=== PATIENT | female | born 1945 | race Caucasian/White ===

== ENCOUNTER 2021-05-24 07:31 | Emergency (ER) | payer BC, MEDICARE ==
[~2021-05-24] VITALS: Ht 162.6 cm; Wt 75.0 kg
[2021-05-24 08:18] LABS: BASO # 0.1 10^3/uL (0.0-0.2); BASO % 0.6 % (0.0-1.0); EOS # 0.1 10^3/uL (0.0-0.5); HEMATOCRIT 41.1 % (36.0-47.0); HEMOGLOBIN 13.2 g/dl (12.0-15.5); LYMPH # 1.4 10^3/uL (1.5-5.0); LYMPH % 17.9 % (24.0-44.0); MEAN CORPUSCULAR HEMOGLOBIN 28.6 pg (27.0-33.0); MEAN CORPUSCULAR HGB CONC 32.1 g/dl (32.0-36.5); MEAN CORPUSCULAR VOLUME 89.2 fl (80.0-96.0); MONO # 0.5 10^3/uL (0.0-0.8); MONO % 5.8 % (2.0-8.0); NEUTROPHILS # 5.6 10^3/uL (1.5-8.5); PLATELET COUNT, AUTOMATED 223 10^3/uL (150-450); RED BLOOD COUNT 4.61 10^6/uL (4.00-5.40); WHITE BLOOD COUNT 7.7 10^3/uL (4.0-10.0)
[2021-05-24 08:42] LABS: ALBUMIN 3.5 GM/DL (3.2-5.2); ALT/SGPT 28 U/L (12-78); BILIRUBIN,DIRECT < 0.1 MG/DL (0.0-0.2); BILIRUBIN,TOTAL 0.3 MG/DL (0.2-1.0); LIPASE 87 U/L (73-393); TOTAL PROTEIN 7.2 GM/DL (6.4-8.2)
[2021-05-24] MEDS ORDERED: ONDANSETRON 4MG/2ML VIAL IV ONE (08:45)
[2021-05-24] MEDS ORDERED: ISOVUE-370 76% 100ML VIAL As Ordered ONE (09:09)
[2021-05-24 09:25] LABS: CK-MB VALUE MASS 2.1 NG/ML (<3.6); CPK CREATINE PHOSPHOKINASE 132 U/L (26-192); MB/CK RELATIVE INDEX 1.59 (< OR =4); TROPONIN I < 0.02 NG/ML (< 0.10)
--- NOTE | 2021-05-24 10:01 | REP ---
INDICATION: vertigo vs CVA. COMPARISON: NONCONTRAST CT BRAIN TODAY TECHNIQUE: BOLUS 100 ML ISOVUE 370 SCANNING THROUGH THE BRAIN WITH CORONAL AND SAGITTAL STANDARD AND MIP RECONSTRUCTIONS WELL 3D MIP RECONSTRUCTION ROTATED ABOUT THE LONG AXIS OF THE HEAD. FINDINGS: Contrast images show no abnormal or enhancing masses in the brain ventricular system and basal cisterns were intact. There is no midline shift. Right and left vertebral arteries show generally symmetric contribution to the basilar artery formation. There is no basilar stenosis or basilar tip aneurysm. The right posterior cerebral artery shows no significant stenosis or aneurysm. There is stenosis of the proximal course of the left posterior cerebral artery with most of the distal course of the posterior cerebral artery supplied by persistent circulation arising from the left internal carotid, an anatomic variation. No vessel cut off in the posterior fossa. Atherosclerotic calcifications along the course of the right internal carotid from the skull base and particularly in the carotid siphon without significant stenosis the supraclinoid carotid A1 and M1 segments were intact. Middle cerebral artery M2 and M3 segments and the anterior cerebral artery A2 segment unremarkable. No aneurysm or stenosis in the right internal carotid distribution. Atherosclerotic calcifications along the course of the internal carotid from the skull base to the carotid siphon where they are heaviest but without stenosis or aneurysm. Supraclinoid carotid A1 and M1 segments are intact. The M2 and M3 segments and the AP 2 segment on the left side were all intact anterior communicating artery intact. No stenosis or aneurysm on the left side. IMPRESSION: 1. Atherosclerotic calcification in bilateral internal carotids from the skull base through the carotid siphons without stenosis or aneurysm. Anterior and middle cerebral artery circulation bilaterally is symmetric and without any significant stenosis or aneurysm. 2. Basilar artery without stenosis or aneurysm. A left-sided persistent circulation supplying most of the flow of the left posterior cerebral artery which is an anatomic variation. No posterior fossa aneurysm or stenosis. <Electronically signed by Elliot Rice > 05/24/21 [id number]
--- NOTE | 2021-05-24 10:01 | REP ---
INDICATION: dizziness. COMPARISON: None. TECHNIQUE: CT BRAIN PERFORMED IN THE AXIAL PLANE. CORONAL RECONSTRUCTION IMAGES ARE PERFORMED. FINDINGS: THE VENTRICLES ARE NORMAL IN SIZE AND POSITION FOR THE STATED AGE.. THERE IS NO MIDLINE SHIFT OR MASS EFFECT. ABDUL-WHITE DIFFERENTIATION IS WELL MAINTAINED. SOME MILD CHRONIC PERIVENTRICULAR LOW-DENSITY WHITE MATTER CHANGES SUGGESTING CHRONIC SMALL VESSEL ISCHEMIC DISEASE. THERE IS NO ACUTE INTRACRANIAL HEMORRHAGE OR EXTRA-AXIAL FLUID COLLECTION. SOME CALCIFICATION OF THE CAROTID SIPHONS NOTED BILATERALLY. BONE WINDOW EXAMINATION IS OTHERWISE UNREMARKABLE. VISUALIZED MASTOID AIR CELLS AND PARANASAL SINUSES ARE CLEAR. IMPRESSION: THERE IS SOME MINOR CHRONIC SMALL VESSEL WHITE MATTER ISCHEMIC CHANGE BILATERALLY WITHOUT ACUTE INFARCT, HEMORRHAGE OR MASS. CALCIFICATIONS IN THE CAROTID SIPHONS NOTED. OTHERWISE NEGATIVE NONCONTRAST CT BRAIN. <Electronically signed by Elliot Rice > 05/24/21 0995
--- NOTE | 2021-05-24 10:01 | REP ---
INDICATION: tachycardia. COMPARISON: None. TECHNIQUE: AP portable FINDINGS: A lordotic upright chest shows the lungs well inflated. Some minor linear fibrotic or atelectatic change left lateral base but no dense consolidation, pleural effusion or parenchymal mass. Heart not enlarged. No vascular redistribution or edema. The aorta is mildly tortuous but normal for age. Airway intact. No abnormal widening of the mediastinum. Some degenerative changes in the spine and shoulders, right greater than left. IMPRESSION: 1. Some minor basilar fibro atelectatic change on the left without gross cardiomegaly, vascular redistribution or pulmonary edema. No effusion. No acute infiltrate. <Electronically signed by Elliot Rice > 05/24/21 [id number]
--- NOTE | 2021-05-24 10:14 | REP ---
INDICATION: Possible CVA COMPARISON: CT brain, CTA brain today TECHNIQUE: Bolus of 100 mL Isovue 370 scanning from the aortic arch to the skull base with coronal and sagittal reconstructions with standard and MIP techniques as well as curved MIP reformats and 3D surface renderings of the arterial system rotated about the longitudinal axis of the neck. FINDINGS: Vascular: Atherosclerotic calcifications at origin of the innominate artery. No aneurysm of the visible aorta. Three great vessels off the arch without stenosis or aneurysm. The right and left internal carotids are without stenosis or aneurysm. Carotid bulbs shows no a stenosis or significant plaque on the right. Bifurcation on the right is high and there is a tortuosity of the right internal carotid but no stenosis. There is atherosclerotic plaque on the left at the bulb and origin of the left external carotid part artery. Both internal carotid arteries are without stenosis to the skull base. There is atherosclerotic plaque at the skull base and into the carotid siphons bilaterally. Vertebral arteries show atherosclerotic calcification scattered in their course have a symmetric contribution to the basilar artery. No basilar stenosis or aneurysm. Nonvascular: The lung apices are clear. Small portions of the main pulmonary artery and proximal right and left pulmonary arteries unremarkable. Visualized portion sternum, manubrium, clavicles upper ribs and thoracic vertebral levels unremarkable. Cervical spine shows spondylosis with anterior osteophytes from C3-4 through C6-7 with disc space narrowing. Posterior osteophytes. No compression deformity. Orbits and contents symmetric. Visualized sinuses are clear. Mastoid air cells clear. No pathologic sized cervical lymphadenopathy. Parotid and submandibular glands symmetric and grossly unremarkable. Tongue base and airway grossly intact. IMPRESSION: 1. Tortuosity of the right internal carotid without stenosis or aneurysm. There is no significant calcific plaque below the skull base. From skull base through carotid siphon atherosclerotic plaque without stenosis or aneurysm. 2. Left internal carotid without stenosis or aneurysm. There is some calcific plaque distally and at origin of the left external carotid. Distal and terminal carotid on the left from skull base to carotid siphon with calcifications but no stenosis. 3. No basilar artery stenosis or aneurysm. 4. No other significant or acute finding. <Electronically signed by Elliot Rice > 05/24/21 1010
[2021-05-24] MEDS ORDERED: MECLIZINE 25 MG TABLET PO ONE (10:30)
[2021-05-24] MEDS ORDERED: METOCLOPRAMIDE INJ 10MG/2ML VIAL (J2765 PER 1) IV ONE (10:30)
[2021-05-24 12:57] VITALS: O2SAT 98
[2021-05-24 14:45] VITALS: BP 135/63
[2021-05-24] MEDS ORDERED: MECL1TAB31 PO (15:19)
[2021-05-24] MEDS ORDERED: [UNRECOGNIZED DRUG - OTHER] (15:22)
--- NOTE | 2021-05-26 20:57 | ECGEPIP ---
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
== END 2021-05-24 15:36 | disposition home or self-care (01) ==
LOC: M ED 07:31
DX: H81.10 Benign paroxysmal vertigo, unspecified ear (principal)
CPT/HCPCS: 70450; 70496; 70498; 71045; 80047; 80076; 82550; 82553; 83690; 84484; 85025; 93005; 93041; 96374; 96375; 99285; J2405; J2765; Q9967

== ENCOUNTER 2021-05-28 06:58 | Outpatient (RCR) | payer MEDICARE ==
[~2021-05-28 06:58] MED LIST: MECL1TAB31 PO; [UNRECOGNIZED DRUG - OTHER]
[2021-05-28] MEDS ORDERED: FAMO20TA PO (11:20)
[2021-05-29] MEDS ORDERED: LISI40TA4 PO (09:56)
[2021-05-29] MEDS ORDERED: ATOR1TAB21 PO (09:56)
[2021-05-29] MEDS ORDERED: AMLO1TAB25 PO (09:56)
[2021-11-26] MEDS ORDERED: AMLO1TAB24 PO (08:26)
== END 2021-06-07 | disposition home or self-care (01) ==
LOC: M PT 06:58
PROVIDERS: ATTEND Emergency Medicine
DX: R42 Dizziness and giddiness (principal)

== ENCOUNTER 2021-05-28 08:12 | Observation (INO) | payer MEDICARE ==
[~2021-05-28] VITALS: Ht 149.9 cm; Wt 83.8 kg
[2021-05-28 09:12] LABS: BASO # 0.1 10^3/uL (0.0-0.2); EOS # 0.1 10^3/uL (0.0-0.5); EOS % 1.1 % (0.0-3.0); HEMATOCRIT 41.9 % (36.0-47.0); HEMOGLOBIN 13.8 g/dl (12.0-15.5); LYMPH # 1.1 10^3/uL (1.5-5.0); LYMPH % 17.8 % (24.0-44.0); MEAN CORPUSCULAR HEMOGLOBIN 29.1 pg (27.0-33.0); MEAN CORPUSCULAR HGB CONC 32.9 g/dl (32.0-36.5); MEAN CORPUSCULAR VOLUME 88.4 fl (80.0-96.0); MONO # 0.5 10^3/uL (0.0-0.8); MONO % 8.6 % (2.0-8.0); NEUTROPHILS # 4.5 10^3/uL (1.5-8.5); NEUTROPHILS % 70.9 % (36.0-66.0); PLATELET COUNT, AUTOMATED 284 10^3/uL (150-450); RED BLOOD COUNT 4.74 10^6/uL (4.00-5.40); WHITE BLOOD COUNT 6.3 10^3/uL (4.0-10.0)
--- NOTE | 2021-05-28 09:30 | REP ---
INDICATION: hypertensive. COMPARISON: Comparison chest x-ray May 24, 2021. TECHNIQUE: ... FINDINGS: The lungs are well inflated and free of infiltrate. The pleural angles are sharp. The heart size is normal. Pulmonary vasculature is not increased. No significant bony abnormality is seen. EKG monitoring electrodes overlie the chest. There are mild degenerative disc changes in the thoracic spine. IMPRESSION: No active disease.. <Electronically signed by Miguel Ruiz > 05/28/21 [id number]
[2021-05-28 09:52] LABS: ALBUMIN 3.9 GM/DL (3.2-5.2); ALT/SGPT 28 U/L (12-78); BILIRUBIN,DIRECT 0.1 MG/DL (0.0-0.2); BILIRUBIN,TOTAL 0.4 MG/DL (0.2-1.0); BLOOD UREA NITROGEN 12 MG/DL (7-18); CALCIUM LEVEL 9.2 MG/DL (8.8-10.2); CARBON DIOXIDE LEVEL 27 MEQ/L (21-32); CHLORIDE LEVEL 107 MEQ/L (98-107); CK-MB VALUE MASS 1.9 NG/ML (<3.6); CPK CREATINE PHOSPHOKINASE 116 U/L (26-192); CREATININE FOR GFR 0.96 MG/DL (0.55-1.30); FREE T4 1.23 NG/DL (0.76-1.46); GLOMERULAR FILTRATION RATE > 60.0 (>39); GLUCOSE, FASTING 106 MG/DL (70-100); MB/CK RELATIVE INDEX 1.64 (< OR =4); POTASSIUM SERUM 3.9 MEQ/L (3.5-5.1); SODIUM LEVEL 141 MEQ/L (136-145); TOTAL PROTEIN 7.3 GM/DL (6.4-8.2); TROPONIN I < 0.02 NG/ML (< 0.10)
[2021-05-28] MEDS ORDERED: LABETALOL 100MG/20ML VIAL IV STA (10:56)
[2021-05-28] MEDS ORDERED: FAMO20TA PO (11:20)
[2021-05-28] MEDS ORDERED: FAMOTIDINE 20 MG TAB PO PRN (12:00)
[2021-05-28] MEDS ORDERED: ACETAMINOPHEN TAB 650MG DOSE (2X325MG) PO PRN (12:00)
[2021-05-28] MEDS ORDERED: hydrALAZINE 20MG/ML 1ML VIAL (J0360 PER 20MG) IV PRN (12:15)
[2021-05-28] MEDS ORDERED: FUROSEMIDE 40 MG TAB PO ONE (12:15)
[2021-05-28] MEDS ORDERED: CAPTOpril 6.25 MG PER 1/2 TABLET PO ONE (12:15)
--- NOTE | 2021-05-28 12:16 | HPEPDOC ---
General Date of Admission 05/28/21 Date of Service: May 28, 2021 Chief Complaint The patient is a 75-year-old female admitted with a reason for visit of Blood Pressure Issue. Source: Patient History of Present Illness Patient is 75 years old female with past medical history of GERD who did not see a primary care physician for years presented to hospital with hypertensive ur gency. Patient stated that on Wednesday she developed dizziness she went to emergency room and she was treated with meclizine which helped and she was recommended to have physical therapy. Today physical therapist checked her blood pressure and systolic blood pressure was around 200. Patient denied any dizziness lightheadedness. In ER patient was found to have blood pressure 212/82, CBC and BMP unremarkable, EKG did not show any ischemic changes. Chest x-ray negative for active pulmonary disease. Home Medications Scheduled PRN Famotidine (Famotidine) 20 Mg Tablet, 20 MG PO BID PRN for HEARTBURN, (Reported) Allergies Coded Allergies: No Known Allergies (Verified , 05/14/03) Past Medical History Medical History GERD Family History I personally reviewed family history and found not pertinent Social History * Smoker: Denies Alcohol: Denies Drugs: denies A-FIB/CHADSVASC A-FIB History Current/History of A-Fib/PAF?: No Current PO Anticoag Therapy: No Review of Systems Constitutional: Denies: Chills, Fever Eyes: Denies: Pain ENT: Denies: Head Aches Skin: Denies: Rash, Lesions Pulmonary: Denies: Dyspnea, Cough Cardiovascular: Denies: Chest Pain Gastrointestinal: Denies: Nausea Genitourinary: Denies: Dysuria Hematologic: Denies: Bruising Endocrine: Denies: Polydipsia Musculoskeletal: Denies: Neck Pain Neurological: Denies: Weakness Psych: Reports: Mood Normal Physical Examination General Exam: Positive: Alert, Cooperative Eye Exam: Positive: PERRLA ENT Exam: Positive: Atraumatic Neck Exam: Positive: Supple; Negative: JVD Chest Exam: Positive: Clear to auscultation Heart Exam: Positive: Rate Normal Telemetry: Positive: No significant arrhythmia Abdomen Exam: Positive: Normal bowel sounds Extremity Exam: Negative: Clubbing Skin Exam: Positive: Nl turgor and temperature Neuro Exam: Positive: Normal Gait Psych Exam: Positive: Mental status NL Vital Signs Vital Signs Date Time Temp Pulse Resp B/P (MAP) Pulse Ox O2 Delivery O2 Flow Rate FiO2 05/28/21 11:35 93 208/87 05/28/21 11:12 98 05/28/21 08:14 97.4 18 Room Air Laboratory Data Labs 24H Laboratory Tests 2 05/28/21 08:59: Immature Granulocyte % (Auto) 0.6, Neutrophils (%) (Auto) 70.9H, Lymphocytes (%) (Auto) 17.8L, Monocytes (%) (Auto) 8.6H, Eosinophils (%) (Auto) 1.1, Basophils (%) (Auto) 1.0, Neutrophils # (Auto) 4.5, Lymphocytes # (Auto) 1.1L, Monocytes # (Auto) 0.5, Eosinophils # (Auto) 0.1, Basophils # (Auto) 0.1, Nucleated Red Blood Cells % (auto) 0.0 05/28/21 09:00: Anion Gap 7L, Glomerular Filtration Rate > 60.0, Calcium Level 9.2, Total Bilirubin 0.4, Direct Bilirubin 0.1, Aspartate Amino Transf (AST/SGOT) 28, Alanine Aminotransferase (ALT/SGPT) 28, Alkaline Phosphatase 73, Total Creatine Kinase 116, Creatine Kinase MB 1.9, Creatine Kinase MB Relative Index 1.64, Troponin I < 0.02, Total Protein 7.3, Albumin 3.9, Albumin/Globulin Ratio 1.1L, Thyroid Stimulating Hormone (TSH) 3.970H, Free Thyroxine 1.23 CBC/BMP Laboratory Tests 05/28/21 08:59 05/28/21 09:00 Assessment/Plan Patient is 75 years old female with past medical history of GERD who did not see a primary care physician for years presented to hospital with hypertensive urgency. Patient stated that on Wednesday she developed dizziness she went to emergency room and she was treated with meclizine which helped and she was recommended to have physical therapy. Today physical therapist checked her blood pressure and systolic blood pressure was around 200. Patient denied any dizziness lightheadedness. In ER patient was found to have blood pressure 212/82, CBC and BMP unremarkable, EKG did not show any ischemic changes. Chest x-ray negative for active pulmonary disease. Problems (1) Hypertensive urgency Status: Acute Problem Text: Most likely patient has underlying hypertension which was never diagnosed Captopril 6.25 Norvasc p.o. Hydralazine IV with parameters Telemetry (2) Benign paroxysmal positional vertigo Status: Acute Problem Text: PT/OT evaluation Plan / VTE VTE Prophylaxis Ordered?: Yes ARCHANA FARMER DO May 28, 2021 12:16
[2021-05-28 13:38] LABS: CHOLESTEROL RISK RATIO 4.094 (<5)
[2021-05-28 15:20] LABS: RSV AMPLIFICATION NEGATIVE (NEGATIVE)
--- NOTE | 2021-05-28 17:34 | ECGEPIP ---
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
[2021-05-28 18:15] VITALS: BP 210/74
[2021-05-28] MEDS ORDERED: SLF 3 ML SYR IV PRN (19:35)
[2021-05-28 20:00] VITALS: BP 134/56
[2021-05-28] MEDS: HEPARIN SOD (PORCINE) 5000UNITS/ML 1ML VIAL/SYRINGE SC SCH (20:16)
[2021-05-28] MEDS: SLF 3 ML SYR IV SCH (20:17)
[2021-05-29] VITALS: BP 139/62
[2021-05-29 04:00] VITALS: BP 157/67
[2021-05-29 06:06] LABS: HEMATOCRIT 39.6 % (36.0-47.0); HEMOGLOBIN 13.1 g/dl (12.0-15.5); MEAN CORPUSCULAR HEMOGLOBIN 29.1 pg (27.0-33.0); MEAN CORPUSCULAR HGB CONC 33.1 g/dl (32.0-36.5); PLATELET COUNT, AUTOMATED 316 10^3/uL (150-450)
[2021-05-29 06:15] LABS: ALBUMIN 3.7 GM/DL (3.2-5.2); BILIRUBIN,TOTAL 0.4 MG/DL (0.2-1.0); CALCIUM LEVEL 9.3 MG/DL (8.8-10.2); CREATININE FOR GFR 1.07 MG/DL (0.55-1.30); GLOMERULAR FILTRATION RATE 53.4 (>39); MAGNESIUM LEVEL 2.1 MG/DL (1.8-2.4); TOTAL PROTEIN 7.3 GM/DL (6.4-8.2)
[2021-05-29] MEDS: SLF 3 ML SYR IV SCH (06:16)
[2021-05-29 08:00] VITALS: BP 164/74
[2021-05-29 08:59] VITALS: BP 164/74
[2021-05-29] MEDS ORDERED: lisinopriL 40 MG TAB PO SCH (09:00)
[2021-05-29] MEDS ORDERED: ATORVASTATIN 20 MG TAB PO SCH (09:00)
[2021-05-29] MEDS: HEPARIN SOD (PORCINE) 5000UNITS/ML 1ML VIAL/SYRINGE SC SCH (09:00)
[2021-05-29] MEDS ORDERED: ATOR1TAB21 PO (09:56)
[2021-05-29] MEDS ORDERED: LISI40TA4 PO (09:56)
[2021-05-29] MEDS ORDERED: AMLO1TAB25 PO (09:56)
--- NOTE | 2021-05-29 15:37 | DS.PDOC ---
Discharge Summary General Date of Admission May 28, 2021 at 08:13 Date of Discharge 05/29/21 Discharge Summary PROCEDURES PERFORMED DURING STAY: [None]. ADMITTING DIAGNOSES: Hypertensive urgency Benign paroxysmal positional vertigo DISCHARGE DIAGNOSES: Hypertensive urgency Benign paroxysmal positional vertigo COMPLICATIONS/CHIEF COMPLAINT: Hypertensive Urgency. HISTORY OF PRESENT ILLNESS: Patient is 75 years old female with past medical hi story of GERD who did not see a primary care physician for years presented to hospital with hypertensive urgency. Patient stated that on Wednesday she developed dizziness she went to emergency room and she was treated with meclizine which helped and she was recommended to have physical therapy. Today physical therapist checked her blood pressure and systolic blood pressure was around 200. Patient denied any dizziness lightheadedness. In ER patient was found to have blood pressure 212/82, CBC and BMP unremarkable, EKG did not show any ischemic changes. Chest x-ray negative for active pulmonary disease. HOSPITAL COURSE: During the hospital stay the following issue addressed (1) Hypertensive urgency Most likely patient has underlying hypertension which was never diagnosed Captopril 6.25 Norvasc p.o. Patient received hydralazine IV with parameters Telemetry Resolved today (2) Benign paroxysmal positional vertigo PT/OT evaluation DISCHARGE MEDICATIONS: Please see below. ALLERGIES: Please see below. PHYSICAL EXAMINATION ON DISCHARGE: VITAL SIGNS: Please see below. Physical Examination General Exam: Positive: Alert, Cooperative Eye Exam: Positive: PERRLA ENT Exam: Positive: Atraumatic Neck Exam: Positive: Supple; Negative: JVD Chest Exam: Positive: Clear to auscultation Heart Exam: Positive: Rate Normal Telemetry: Positive: No significant arrhythmia Abdomen Exam: Positive: Normal bowel sounds Extremity Exam: Negative: Clubbing Skin Exam: Positive: Nl turgor and temperature Neuro Exam: Positive: Normal Gait Psych Exam: Positive: Mental status NL LABORATORY DATA: Please see below. PROGNOSIS: Fair ACTIVITY: [As tolerated]. DIET: Cardiac DISPOSITION: 01 Home, Self-Care. ITEMS TO FOLLOWUP ON ON OUTPATIENT: Follow-up with PCP in 3 to 5 days DISCHARGE CONDITION: [Stable]. TIME SPENT ON DISCHARGE: 40 minutes. Vital Signs/I&Os Vital Signs Date Time Temp Pulse Resp B/P (MAP) Pulse Ox O2 Delivery O2 Flow Rate FiO2 05/29/21 08:59 164/74 05/29/21 08:00 97.1 68 21 96 Room Air I&O- Last 24 Hours up to 6 AM 05/29/21 05:59 Intake Total 0 ml Output Total 100 ml Balance -100 ml Laboratory Data Labs 24H Laboratory Tests 2 05/29/21 05:19: Nucleated Red Blood Cells % (auto) 0.0, Anion Gap 12, Glomerular Filtration Rate 53.4, Calcium Level 9.3, Magnesium Level 2.1, Total Bilirubin 0.4, Aspartate Amino Transf (AST/SGOT) 24, Alanine Aminotransferase (ALT/SGPT) 26, Alkaline Phosphatase 71, Total Protein 7.3, Albumin 3.7, Albumin/Globulin Ratio 1.0L CBC/BMP Laboratory Tests 05/29/21 05:19 Discharge Medications Scheduled Amlodipine Besylate (Amlodipine Besylate) 10 Mg Tablet, 10 MG PO DAILY Atorvastatin Calcium (Atorvastatin Calcium) 20 Mg Tablet, 40 MG PO DAILY Lisinopril (Lisinopril) 40 Mg Tablet, 40 MG PO DAILY Scheduled PRN Famotidine (Famotidine) 20 Mg Tablet, 20 MG PO BID PRN for HEARTBURN, (Reported) Allergies Coded Allergies: No Known Allergies (Verified , 05/14/03) ARCHANA FARMER DO May 29, 2021 15:37
== END 2021-05-29 12:22 | disposition home or self-care (01) ==
LOC: M ED 08:12 → M ED INP 08:13 → ENRESERV 16:15 → M PCU 18:10
PROVIDERS: ADMIT Internal Medicine; ATTEND Internal Medicine
DX: I16.0 Hypertensive urgency (principal); H81.10 Benign paroxysmal vertigo, unspecified ear; K21.9 Gastro-esophageal reflux disease without esophagitis; Z79.899 Other long term (current) drug therapy
CPT/HCPCS: 36415; 71046; 80048; 80053; 80061; 80076; 82550; 82553; 83735; 84439; 84443; 84484; 85025; 85027; 87631; 93005; 93041; 94760; 96372; 96374; 96375; 97161; 97165; 99285; G0378; J0360; J1644

== ENCOUNTER 2021-07-07 13:45 | Outpatient (RCR) | payer MEDICARE ==
[~2021-07-07 13:45] MED LIST changes: +AMLO1TAB25 PO; +ATOR1TAB21 PO; +FAMO20TA PO; +LISI40TA4 PO
== END 2021-07-08 ==
LOC: M PT 13:45
PROVIDERS: ATTEND Nurse Practitioner Family
DX: R42 Dizziness and giddiness (principal)

== ENCOUNTER 2021-07-23 10:44 | Outpatient (RCR) | payer MEDICARE | END 2021-08-07 | LOC: M PT 10:44 | PROVIDERS: ATTEND Nurse Practitioner Family | DX: H81.90 Unspecified disorder of vestibular function, unspecified ear (principal) ==

== ENCOUNTER → 2021-12-05 | Outpatient (CLI) | payer MEDICARE ==
[~2021-12-05] MED LIST changes: +AMLO1TAB24 PO
== END ==
LOC: M LABSMTC 09:30
PROVIDERS: ATTEND Anesthesiology
DX: Z01.812 Encounter for preprocedural laboratory examination (principal); Z20.822 Contact with and (suspected) exposure to COVID-19

== ENCOUNTER 2021-12-10 08:12 | Day surgery (SDC) | payer MEDICARE ==
[~2021-12-10] VITALS: Ht 152.4 cm; Wt 77.1 kg
[~2021-12-10 08:12] MED LIST changes: +NS 1,000 ML IV ONE
[2021-12-10] MEDS ORDERED: LIDOCAINE 2% 100MG/5ML SDV (FOR ANES.) As Ordered ONE (08:55)
[2021-12-10] MEDS ORDERED: propofoL 200 MG/20 ML VIAL As Ordered ONE (08:55)
[2021-12-10 10:00] VITALS: BP 129/58
== END 2021-12-10 10:14 | disposition home or self-care (01) ==
LOC: M OPP 08:12
PROVIDERS: ATTEND Internal Medicine Gastroenterology
DX: D12.6 Benign neoplasm of colon, unspecified (principal); K57.30 Diverticulosis of large intestine without perforation or abscess without bleeding; K64.0 First degree hemorrhoids; R19.5 Other fecal abnormalities; Z79.899 Other long term (current) drug therapy; Z91.048 Other nonmedicinal substance allergy status

== ENCOUNTER → 2021-12-29 | Outpatient (CLI) | payer MEDICARE ==
[~2021-12-29] MED LIST changes: -NS 1,000 ML IV ONE
[2021-12-29 15:41] LABS: BASO # 0.1 10^3/uL (0.0-0.2); BASO % 0.8 % (0.0-1.0); EOS # 0.2 10^3/uL (0.0-0.5); EOS % 2.5 % (0.0-3.0); HEMATOCRIT 35.7 % (36.0-47.0); LYMPH # 2.2 10^3/uL (1.5-5.0); LYMPH % 27.9 % (24.0-44.0); MEAN CORPUSCULAR HEMOGLOBIN 28.6 pg (27.0-33.0); MEAN CORPUSCULAR HGB CONC 30.8 g/dl (32.0-36.5); MEAN CORPUSCULAR VOLUME 92.7 fl (80.0-96.0); MONO # 0.6 10^3/uL (0.0-0.8); MONO % 8.1 % (2.0-8.0); NEUTROPHILS # 4.8 10^3/uL (1.5-8.5); NEUTROPHILS % 60.4 % (36.0-66.0); PLATELET COUNT, AUTOMATED 339 10^3/uL (150-450); RED BLOOD COUNT 3.85 10^6/uL (4.00-5.40); WHITE BLOOD COUNT 7.9 10^3/uL (4.0-10.0)
[2021-12-29 15:56] LABS: HEMOGLOBIN A1c 5.4 %
[2021-12-29 16:12] LABS: ALBUMIN 3.8 GM/DL (3.2-5.2); BILIRUBIN,TOTAL 0.3 MG/DL (0.2-1.0); CALCIUM LEVEL 9.6 MG/DL (8.8-10.2); CHOLESTEROL RISK RATIO 2.686 (<5); CREATININE FOR GFR 1.08 MG/DL (0.55-1.30); FREE T4 1.12 NG/DL (0.76-1.46); GLOMERULAR FILTRATION RATE 52.7 (>39); POTASSIUM SERUM 4.2 MEQ/L (3.5-5.1); THYROID STIMULATING HORMONE 2.8 uIU/ML (0.358-3.740); TOTAL PROTEIN 7.4 GM/DL (6.4-8.2)
== END ==
LOC: M PLALAB 13:17
PROVIDERS: ATTEND Physician Assistant Medical
DX: I10 Essential (primary) hypertension (principal); E78.49 Other hyperlipidemia; E66.9 Obesity, unspecified; Z79.899 Other long term (current) drug therapy

== ENCOUNTER → 2022-06-22 | Outpatient (CLI) | payer MEDICARE ==
[2022-06-22 12:47] LABS: BASO # 0.1 10^3/uL (0.0-0.2); BASO % 0.8 % (0.0-1.0); EOS # 0.1 10^3/uL (0.0-0.5); HEMATOCRIT 34.9 % (36.0-47.0); HEMOGLOBIN 11.1 g/dl (12.0-15.5); LYMPH # 1.8 10^3/uL (1.5-5.0); LYMPH % 22.8 % (24.0-44.0); MEAN CORPUSCULAR HEMOGLOBIN 29.6 pg (27.0-33.0); MEAN CORPUSCULAR HGB CONC 31.8 g/dl (32.0-36.5); MEAN CORPUSCULAR VOLUME 93.1 fl (80.0-96.0); MONO # 0.7 10^3/uL (0.0-0.8); MONO % 8.1 % (2.0-8.0); NEUTROPHILS # 5.3 10^3/uL (1.5-8.5); NEUTROPHILS % 66.8 % (36.0-66.0); PLATELET COUNT, AUTOMATED 354 10^3/uL (150-450); RED BLOOD COUNT 3.75 10^6/uL (4.00-5.40)
[2022-06-22 13:47] LABS: ALBUMIN 4.2 GM/DL (3.2-5.2); BILIRUBIN,TOTAL 0.4 MG/DL (0.2-1.0); CALCIUM LEVEL 10.1 MG/DL (8.8-10.2); CREATININE FOR GFR 1.44 MG/DL (0.55-1.30); GLOMERULAR FILTRATION RATE 37.8 (>39); POTASSIUM SERUM 4.8 MEQ/L (3.5-5.1); TOTAL PROTEIN 7.6 GM/DL (6.4-8.2)
== END ==
LOC: M PLALAB 10:02
PROVIDERS: ATTEND Physician Assistant Medical
DX: E78.49 Other hyperlipidemia (principal); I10 Essential (primary) hypertension

== ENCOUNTER → 2023-01-07 | Outpatient (CLI) | payer MEDICARE ==
[2023-01-07 16:08] LABS: BASO # 0.1 10^3/uL (0.0-0.2); BASO % 0.7 % (0.0-1.0); EOS # 0.1 10^3/uL (0.0-0.5); EOS % 1.7 % (0.0-3.0); HEMATOCRIT 35.8 % (36.0-47.0); HEMOGLOBIN 11.2 g/dl (12.0-15.5); LYMPH # 2.2 10^3/uL (1.5-5.0); LYMPH % 28.3 % (24.0-44.0); MEAN CORPUSCULAR HEMOGLOBIN 28.7 pg (27.0-33.0); MEAN CORPUSCULAR HGB CONC 31.3 g/dl (32.0-36.5); MEAN CORPUSCULAR VOLUME 91.8 fl (80.0-96.0); MONO # 0.8 10^3/uL (0.0-0.8); MONO % 10.1 % (2.0-8.0); NEUTROPHILS # 4.5 10^3/uL (1.5-8.5); NEUTROPHILS % 58.9 % (36.0-66.0); PLATELET COUNT, AUTOMATED 310 10^3/uL (150-450); WHITE BLOOD COUNT 7.6 10^3/uL (4.0-10.0)
[2023-01-07 16:29] LABS: HEMOGLOBIN A1c 5.3 % (4.0-6.0)
[2023-01-07 16:37] LABS: ALBUMIN 3.8 G/DL (3.2-5.2); BILIRUBIN,TOTAL 0.4 MG/DL (0.3-1.2); CALCIUM LEVEL 9.3 MG/DL (8.3-10.6); CHOLESTEROL RISK RATIO 2.43 (<5); CREATININE FOR GFR 1.01 MG/DL (0.55-1.30); FREE T4 1.29 NG/DL (0.89-1.76); GLOMERULAR FILTRATION RATE 56.7 (>39); HDL CHOLESTEROL 66.9 MG/DL (>40); LDL CHOLESTEROL 64.1 MG/DL (<100); POTASSIUM SERUM 4.2 MMOL/L (3.5-5.1); THYROID STIMULATING HORMONE 3.463 uIU/ML (0.55-4.78); TOTAL PROTEIN 7.2 G/DL (5.7-8.2)
== END ==
LOC: M PLALAB 13:35
PROVIDERS: ATTEND Physician Assistant Medical
DX: I10 Essential (primary) hypertension (principal); E78.49 Other hyperlipidemia; E66.9 Obesity, unspecified

== ENCOUNTER → 2023-07-07 | Outpatient (CLI) | payer MEDICARE ==
[2023-07-07 13:50] LABS: BASO # 0.1 10^3/uL (0.0-0.2); BASO % 0.8 % (0.0-1.0); EOS # 0.1 10^3/uL (0.0-0.5); EOS % 2.1 % (0.0-3.0); HEMATOCRIT 34.1 % (36.0-47.0); HEMOGLOBIN 10.9 g/dl (12.0-15.5); LYMPH % 31.1 % (24.0-44.0); MEAN CORPUSCULAR HEMOGLOBIN 29.3 pg (27.0-33.0); MEAN CORPUSCULAR VOLUME 91.7 fl (80.0-96.0); MONO # 0.6 10^3/uL (0.0-0.8); NEUTROPHILS # 3.5 10^3/uL (1.5-8.5); NEUTROPHILS % 55.8 % (36.0-66.0); PLATELET COUNT, AUTOMATED 326 10^3/uL (150-450); RED BLOOD COUNT 3.72 10^6/uL (4.00-5.40); WHITE BLOOD COUNT 6.3 10^3/uL (4.0-10.0)
[2023-07-07 14:19] LABS: ALBUMIN 3.8 G/DL (3.2-5.2); BILIRUBIN,TOTAL 0.4 MG/DL (0.3-1.2); CALCIUM LEVEL 9.6 MG/DL (8.3-10.6); CHOLESTEROL RISK RATIO 2.5 (<5); CREATININE FOR GFR 1.11 MG/DL (0.55-1.30); FREE T4 1.24 NG/DL (0.89-1.76); GLOMERULAR FILTRATION RATE 50.9 (>39); HDL CHOLESTEROL 65.8 MG/DL (>40); LDL CHOLESTEROL 68.4 MG/DL (<100); NON-HDL-C 99.2 MG/DL; POTASSIUM SERUM 4.4 MMOL/L (3.5-5.1); THYROID STIMULATING HORMONE 4.011 uIU/ML (0.55-4.78); TOTAL PROTEIN 7.2 G/DL (5.7-8.2)
== END ==
LOC: M PLALAB 09:22
PROVIDERS: ATTEND Physician Assistant Medical
DX: I10 Essential (primary) hypertension (principal); E78.49 Other hyperlipidemia; E66.9 Obesity, unspecified; Z79.899 Other long term (current) drug therapy

== ENCOUNTER → 2024-03-22 | Outpatient (CLI) | payer MEDICARE ==
[~2024-03-22] MED LIST changes: +MECL-209 PO; -MECL1TAB31 PO
[2024-03-22 12:23] LABS: BASO # 0.1 10^3/uL (0.0-0.2); BASO % 0.7 % (0.0-1.0); EOS # 0.2 10^3/uL (0.0-0.5); EOS % 1.9 % (0.0-3.0); HEMATOCRIT 34.3 % (36.0-47.0); HEMOGLOBIN 11.1 g/dl (12.0-15.5); LYMPH # 2.5 10^3/uL (1.5-5.0); LYMPH % 28.2 % (24.0-44.0); MEAN CORPUSCULAR HEMOGLOBIN 29.7 pg (27.0-33.0); MEAN CORPUSCULAR HGB CONC 32.4 g/dl (32.0-36.5); MEAN CORPUSCULAR VOLUME 91.7 fl (80.0-96.0); MONO # 0.9 10^3/uL (0.0-0.8); MONO % 9.9 % (2.0-8.0); NEUTROPHILS # 5.2 10^3/uL (1.5-8.5); PLATELET COUNT, AUTOMATED 299 10^3/uL (150-450); RED BLOOD COUNT 3.74 10^6/uL (4.00-5.40); WHITE BLOOD COUNT 8.8 10^3/uL (4.0-10.0)
[2024-03-22 12:29] LABS: ALBUMIN 3.8 G/DL (3.2-5.2); BILIRUBIN,TOTAL 0.5 MG/DL (0.3-1.2); CALCIUM LEVEL 9.7 MG/DL (8.3-10.6); CHOLESTEROL RISK RATIO 2.56 (<5); CREATININE FOR GFR 1.17 MG/DL (0.55-1.30); GLOMERULAR FILTRATION RATE 47.7 (>39); HDL CHOLESTEROL 66.3 MG/DL (>40); LDL CHOLESTEROL 74.5 MG/DL (<100); NON-HDL-C 103.7 MG/DL; POTASSIUM SERUM 4.4 MMOL/L (3.5-5.1); THYROID STIMULATING HORMONE 3.524 uIU/ML (0.55-4.78); TOTAL PROTEIN 6.9 G/DL (5.7-8.2)
[2024-03-22 12:30] LABS: FREE T4 1.26 NG/DL (0.89-1.76)
[2024-03-22 12:54] LABS: HEMOGLOBIN A1c 5.3 % (4.0-6.0)
== END ==
LOC: M PLALAB 08:08
PROVIDERS: ATTEND Physician Assistant Medical
DX: I10 Essential (primary) hypertension (principal); E66.9 Obesity, unspecified; E78.49 Other hyperlipidemia; Z68.30 Body mass index [BMI] 30.0-30.9, adult; Z79.899 Other long term (current) drug therapy

== ENCOUNTER → 2025-01-18 | Outpatient (CLI) | payer MEDICARE ==
[2025-01-18 12:30] LABS: BASO # 0.1 10^3/uL (0.0-0.2); BASO % 1.1 % (0.0-1.0); EOS # 0.1 10^3/uL (0.0-0.5); EOS % 1.2 % (0.0-3.0); HEMATOCRIT 35.1 % (36.0-47.0); HEMOGLOBIN 11.3 g/dl (12.0-15.5); LYMPH # 1.1 10^3/uL (1.5-5.0); LYMPH % 17.3 % (24.0-44.0); MEAN CORPUSCULAR HEMOGLOBIN 29.5 pg (27.0-33.0); MEAN CORPUSCULAR HGB CONC 32.2 g/dl (32.0-36.5); MEAN CORPUSCULAR VOLUME 91.6 fl (80.0-96.0); MONO # 0.7 10^3/uL (0.0-0.8); MONO % 11.3 % (2.0-8.0); NEUTROPHILS # 4.5 10^3/uL (1.5-8.5); NEUTROPHILS % 68.8 % (36.0-66.0); PLATELET COUNT, AUTOMATED 326 10^3/uL (150-450); RED BLOOD COUNT 3.83 10^6/uL (4.00-5.40); WHITE BLOOD COUNT 6.5 10^3/uL (4.0-10.0)
[2025-01-18 13:02] LABS: ALBUMIN 4.1 G/DL (3.2-5.2); BILIRUBIN,TOTAL 0.6 MG/DL (0.3-1.2); CALCIUM LEVEL 9.8 MG/DL (8.3-10.6); CHOLESTEROL RISK RATIO 2.42 (<5); CREATININE FOR GFR 1.51 MG/DL (0.55-1.30); GLOMERULAR FILTRATION RATE 35.5 (>39); HDL CHOLESTEROL 65.6 MG/DL (>40); LDL CHOLESTEROL 63.8 MG/DL (<100); NON-HDL-C 93.4 MG/DL; TOTAL PROTEIN 7.6 G/DL (5.7-8.2)
== END ==
LOC: M PLALAB 09:06
PROVIDERS: ATTEND Physician Assistant Medical
DX: I10 Essential (primary) hypertension (principal); E78.49 Other hyperlipidemia